=== PATIENT | male | born 1955 | race Caucasian/White ===

== ENCOUNTER 2017-08-08 11:01 | Emergency (ER) | payer SELFPAY ==
--- NOTE | 2017-08-08 11:28 | EDM.PDOC ---
ED HPI GENERAL MEDICAL PROBLEM - General Chief Complaint: General Stated Complaint: ER Time Seen by Provider: 08/08/17 11:21 Source of Information: Reports: Patient History Limitations: Reports: No Limitations - History of Present Illness INITIAL COMMENTS - FREE TEXT/NARRATIVE: Patient here with complaints of high blood pressure. He has no other complaints. Wants to be seen to be started on a blood pressure medication. 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 He had been on htn medication in the past that he is unable to remember. He did start on them and put them away. He has not taken them since. Smokes 1 pack every 5 days or so per his report. Associated Symptoms: Reports: No Other Symptoms - Related Data Allergies Allergy/AdvReac Type Severity Reaction Status Date / Time No Known Allergies Allergy Verified 08/08/17 11:18 Home Meds: Home Meds Aspirin 325 mg PO DAILY 08/08/17 [History] Past Medical History - Past Health History Medical/Surgical History: Denies Medical/Surgical History Social & Family History - Tobacco Use Smoking Status *Q: Current Every Day Smoker Years of Tobacco use: 40 Packs/Tins Daily: 1 ED ROS GENERAL - Review of Systems Review Of Systems: ROS reveals no pertinent complaints other than HPI. ED EXAM, GENERAL - Physical Exam Exam: See Below Exam Limited By: No Limitations General Appearance: Alert, WD/WN, No Apparent Distress Eye Exam: Bilateral Eye: EOMI, PERRL Throat/Mouth: Normal Inspection, Normal Oropharynx Head: Atraumatic, Normocephalic Neck: Normal Inspection Respiratory/Chest: No Respiratory Distress, Lungs Clear, Normal Breath Sounds, No Accessory Muscle Use, Chest Non-Tender Cardiovascular: Normal Peripheral Pulses, Regular Rate, Rhythm, No Edema Peripheral Pulses: 2+: Posterior Tibial (L), Posterior Tibial (R), Dorsalis Pedis (L), Dorsalis Pedis (R) GI/Abdominal: Normal Bowel Sounds, Soft, Non-Tender Extremities: Normal Inspection, Normal Range of Motion, Normal Capillary Refill Neurological: Alert, Oriented, CN II-XII Intact, Normal Cognition, Normal Gait, Normal Reflexes, No Motor/Sensory Deficits Psychiatric: Normal Affect, Normal Mood Skin Exam: Warm, Dry, Intact, Normal Color, No Rash Course - Vital Signs Last Recorded V/S: Last Vital Signs Temp 36.9 C 08/08/17 11:05 Pulse 74 08/08/17 11:05 Resp 18 08/08/17 11:05 BP 156/66 H 08/08/17 11:05 Pulse Ox 95 08/08/17 11:05 - Orders/Labs/Meds Orders: Active Orders 24 hr Category Date Time Status CBC WITH MANUAL DIFF [HEME] Stat Lab 08/08/17 11:21 Ordered CMP [COMPREHENSIVE METABOLIC PN,CMP] [CHEM] Stat Lab 08/08/17 11:21 Ordered - Re-Assessments/Exams Free Text/Narrative Re-Assessment/Exam: 08/08/17 11:25 I did order labs on him and will start him on a month of lisinopril 10 mg daily with no refills. I did advise him that he can't come here for primary care as we are to be used on an emergency basis since we are an emergency department. I let him know of the [place] and [facility] clinics that are here in town. Departure - Departure Time of Disposition: 11:27 Disposition: Home, Self-Care 01 Condition: Good Clinical Impression: Hypertension - Discharge Information Instructions: Hypertension, [id number], Lisinopril tablets Additional Instructions: Take 1 tablet of the lisinopril daily. I did not give you any refills so you are going to have to see someone at either the [facility] or [facility] for follow up as we are an Emergency Room, not primary care. Other things that you can do to reduce your blood pressure include: lose weight , stop smoking, eat more fruits and vegetables, eat fewer processed foods, reduce salt intake, increase exercise to 30-60 minutes most days of the week. Some common side effects from the Lisinopril can include a dry cough or swelling. If either of these occur you should stop taking the medication and visit with a medical provider regarding a change to another blood pressure medication. Stay well hydrated. Follow up with a primary doctor as your symptoms warrant. Please call us if you have any questions or concerns. - Problem List & Annotations (1) Hypertension SNOMED Code(s): 43085764 Code(s): I10 - ESSENTIAL (PRIMARY) HYPERTENSION Status: Acute Priority: Low Qualifiers: Hypertension type: essential hypertension Qualified Code(s): I10 - Essential (primary) hypertension - Problem List Review Problem List Initiated/Reviewed/Updated: Yes - My Orders Last 24 Hours: My Active Orders 08/08/17 11:21 CBC WITH MANUAL DIFF [HEME] Stat CMP [COMPREHENSIVE METABOLIC PN,CMP] [CHEM] Stat - Assessment/Plan Last 24 Hours: My Active Orders 08/08/17 11:21 CBC WITH MANUAL DIFF [HEME] Stat CMP [COMPREHENSIVE METABOLIC PN,CMP] [CHEM] Stat Assessment:: hypertension Plan: Take 1 tablet of the lisinopril daily. I did not give you any refills so you are going to have to see someone at either the [facility] or [facility] for follow up as we are an Emergency Room, not primary care. Other things that you can do to reduce your blood pressure include: lose weight , stop smoking, eat more fruits and vegetables, eat fewer processed foods, reduce salt intake, increase exercise to 30-60 minutes most days of the week. Some common side effects from the Lisinopril can include a dry cough or swelling. If either of these occur you should stop taking the medication and visit with a medical provider regarding a change to another blood pressure medication. Stay well hydrated. Follow up with a primary doctor as your symptoms warrant. Please call us if you have any questions or concerns.
[2017-08-08 12:00] LABS: CHLORIDE,CL 105 mmol/L (98-107); SODIUM,NA 141 mmol/L (136-145)
== END 2017-08-08 11:43 | disposition home or self-care (01) ==
LOC: VM.ED 11:01
DX: I10 Essential (primary) hypertension (principal); F17.210 Nicotine dependence, cigarettes, uncomplicated; Z79.82 Long term (current) use of aspirin
CPT/HCPCS: 36415; 80053; 85025; 99283; 99283-GF

== ENCOUNTER 2017-11-20 17:47 | Emergency (ER) | payer OTHER ==
[~2017-11-20 17:47] MED LIST: Sodium Chloride 0.9% 10 ML Syringe FLUSH PRN
--- NOTE | 2017-11-20 18:08 | EDM.PDOC ---
ED HPI GENERAL MEDICAL PROBLEM - General Chief Complaint: Neuro Symptoms/Deficits Stated Complaint: confusion Time Seen by Provider: 11/20/17 17:47 Source of Information: Reports: Patient, EMS History Limitations: Reports: Altered Mental Status, Uncooperative - History of Present Illness INITIAL COMMENTS - FREE TEXT/NARRATIVE: Patient was found to be acting erratically in a local grocery store. Local grocery store personnel contacted law enforcement. Patient left before law enforcement came in. [place] of [facility] when police found are contacted and called regarding a patient driving erratically they went on a welfare check on the gentleman to be confused and incoherent or driving. 911 dispatch contacted EMS personnel to transport patient here. Pt had bilateral IV inserted with 600ml bolus given. Patient is in and out of orientation. He is confused at times not making any sense and then the next minute he is able to answer questions completely according to EMS. He was incontinent of urine. As noted history of diabetes type 2 without treatment he' s just been diagnosed about this last week. Patient states he has not been eating but has been drinking lots of pop the past couple of days. 1505 last well. Onset: Sudden Onset Date: 11/20/17 Onset Time: 15:05 Duration: Constant - Related Data Allergies Allergy/AdvReac Type Severity Reaction Status Date / Time No Known Allergies Allergy Verified 08/08/17 11:18 Home Meds: Home Meds Aspirin 325 mg PO DAILY 08/08/17 [History] Past Medical History - Past Health History Medical/Surgical History: Denies Medical/Surgical History Social & Family History - Tobacco Use Smoking Status *Q: Current Every Day Smoker Years of Tobacco use: 40 Packs/Tins Daily: 1 ED ROS GENERAL - Review of Systems Review Of Systems: Unable To Obtain ED EXAM, NEURO - Physical Exam Exam: See Below Exam Limited By: Uncooperative General Appearance: Moderate Distress Nose: Normal Inspection, Normal Mucosa Head Exam: Atraumatic, Normocephalic Neck: Normal Inspection Respiratory/Chest: Decreased Breath Sounds, Wheezing, Prolonged Expiration GI/Abdominal: Distended, Guarding, Rigid, Tender, Hepatomegaly (Male) Exam: Scrotum Tenderness (R), Testicular Tenderness (R) Rectal (Males) Exam: Black Stool, Heme + Stool, Tenderness, Other (skin breakdown tissue bleeding ) Neurological: Abnormal Gait, Abnormal Motor, Difficulty Walking Extremities: Mottled (lower extremities ), Redness, Other (healing bruise formation on left ankle ) Skin Exam: Rash Course - Orders/Labs/Meds Orders: Active Orders 24 hr Category Date Time Status Blood Glucose Check, Bedside [] ONETIME Care 11/20/17 16:53 Active EKG 12 Lead [EKG Documentation Completion] [] ROUTINE Care 11/20/17 16:56 Ordered Fecal Occult Bld Diag Imm [RC] ASDIRECTED Care 11/20/17 18:15 Active POC Glucose [Blood Glucose Check, Bedside] [] ONETIME Care 11/20/17 17:55 Active RT Arterial Blood Gases, ABG [] Click to Edit Care 11/20/17 17:55 Active Vital Signs [] .prn Care 11/20/17 16:53 Active Chest Abdomen Pelvis wo Cont [CT] Stat Exams 11/20/17 17:54 Taken Head wo Cont [CT] Stat Exams 11/20/17 16:53 Taken C-REACTIVE PROTEIN [CHEM] Stat Lab 11/20/17 18:19 Received CK W CKMB [CHEM] Stat Lab 11/20/17 18:19 Received COMPREHENSIVE METABOLIC PN,CMP [CHEM] Stat Lab 11/20/17 18:19 Received CULTURE BLOOD [BC] Stat Lab 11/20/17 18:24 Ordered CULTURE BLOOD [BC] Stat Lab 11/20/17 18:24 Ordered ETHANOL BLOOD MEDICAL [CHEM] Stat Lab 11/20/17 18:19 Received LACTIC ACID [CHEM] Stat Lab 11/20/17 18:19 Received TROPONIN I [CHEM] Stat Lab 11/20/17 18:19 Received TYPE AND SCREEN [BBK] Stat Lab 11/20/17 18:19 Received HYDROmorphone [Dilaudid] Med 11/20/17 19:33 Ordered 1 mg IVPUSH Q1H PRN Insulin Regular, Human [HumuLIN R] 100 unit Med 11/20/17 19:45 Ordered Sodium Chloride 0.9% [Normal Saline] 99 ml IV ASDIRECTED Ondansetron [Zofran] Med 11/20/17 19:33 Once 4 mg IVPUSH ONETIME ONE Sodium Chloride 0.9% [Normal Saline] 1,000 ml Med 11/20/17 19:24 Ordered IV ONETIME Sodium Chloride 0.9% [Saline Flush] Med 11/20/17 16:53 Active 10 ml FLUSH ASDIRECTED PRN Vancomycin 1 gm Med 11/20/17 18:53 Active Sodium Chloride 0.9% [Normal Saline] 250 ml IV ONETIME Blood Culture x2 Reflex Set [OM.PC] Stat Oth 11/20/17 18:23 Ordered Peripheral IV Insertion Adult [OM.PC] Urgent Oth 11/20/17 16:53 Ordered Saline Lock Insert [OM.PC] Urgent Oth 11/20/17 16:53 Ordered Medication Orders Hydromorphone HCl (Dilaudid) 1 mg IVPUSH Q1H PRN PRN Reason: Pain Vancomycin HCl 1 gm/ Sodium (Chloride) 250 mls @ 250 mls/hr IV ONETIME ONE Stop: 11/20/17 19:52 Last Admin: 11/20/17 19:01 Dose: 250 mls/hr Sodium Chloride (Normal Saline) 1,000 mls @ 1,000 mls/hr IV ONETIME ONE Stop: 11/20/17 20:23 Last Admin: 11/20/17 19:26 Dose: 1,000 mls/hr Insulin Human Regular 100 unit (/ Sodium Chloride) 100 mls @ 16 mls/hr IV ASDIRECTED TIKA; 16 UNIT/HR PRN Reason: Protocol Ondansetron HCl (Zofran) 4 mg IVPUSH ONETIME ONE Stop: 11/20/17 19:34 Sodium Chloride (Saline Flush) 10 ml FLUSH ASDIRECTED PRN PRN Reason: Keep Vein Open Labs: Laboratory Tests 11/20/17 11/20/17 11/20/17 Range/Units 18:19 18:19 18:19 WBC 11.0 H (4.0-10.0) x10^3/uL RBC 4.29 L (4.5-6.0) x10^6/uL Hgb 12.7 L (14.0-18.0) g/dL Hct 40.8 (40.0-52.0) % MCV 95.1 H D (78.0-93.0) fL MCH 29.6 (26.0-32.0) pg MCHC 31.1 L (32.0-36.0) g/dL RDW Coeff of Lola 14.4 (10.0-15.0) % Plt Count 168 (130-400) x10^3/uL Neut % (Auto) 79.5 (50.0-80.0) % Lymph % (Auto) 12.5 L (25.0-50.0) % [place] % (Auto) 7.5 (2.0-11.0) % Eos % (Auto) 0.1 (0.0-4.0) % Baso % (Auto) 0.4 (0.2-1.2) % PT 9.9 (9.8-11.8) SEC INR 0.9 L (2.0-3.5) APTT 21.0 L (22.0-34.0) SEC Amylase 147 H (25-115) U/L Lipase 2224 H (73-393) U/L Stool Occult Blood (NEGATIVE) Urine Opiates Screen (NEAGTIVE) Ur Buprenorphine Scrn (NEGATIVE) Ur Oxycodone Screen (NEGATIVE) Urine Methadone Screen (NEGATIVE) Ur Barbiturates Screen (NEGATIVE) Ur Tricyclics Screen (NEGATIVE) Ur Amphetamine Screen (NEGATIVE) U Methamphetamines Scrn (NEGATIVE) Urine MDMA Screen (NEGATIVE) U Benzodiazepines Scrn (NEGATIVE) U Cocaine Metab Screen (NEGATIVE) U Marijuana (THC) Screen (NEGATIVE) 11/20/17 11/20/17 Range/Units 18:30 19:10 WBC (4.0-10.0) x10^3/uL RBC (4.5-6.0) x10^6/uL Hgb (14.0-18.0) g/dL Hct (40.0-52.0) % MCV (78.0-93.0) fL MCH (26.0-32.0) pg MCHC (32.0-36.0) g/dL RDW Coeff of Lola (10.0-15.0) % Plt Count (130-400) x10^3/uL Neut % (Auto) (50.0-80.0) % Lymph % (Auto) (25.0-50.0) % [place] % (Auto) (2.0-11.0) % Eos % (Auto) (0.0-4.0) % Baso % (Auto) (0.2-1.2) % PT (9.8-11.8) SEC INR (2.0-3.5) APTT (22.0-34.0) SEC Amylase (25-115) U/L Lipase (73-393) U/L Stool Occult Blood Negative (NEGATIVE) Urine Opiates Screen Negative (NEAGTIVE) Ur Buprenorphine Scrn Negative (NEGATIVE) Ur Oxycodone Screen Negative (NEGATIVE) Urine Methadone Screen Negative (NEGATIVE) Ur Barbiturates Screen Negative (NEGATIVE) Ur Tricyclics Screen Negative (NEGATIVE) Ur Amphetamine Screen Negative (NEGATIVE) U Methamphetamines Scrn Negative (NEGATIVE) Urine MDMA Screen Negative (NEGATIVE) U Benzodiazepines Scrn Negative (NEGATIVE) U Cocaine Metab Screen Negative (NEGATIVE) U Marijuana (THC) Screen Negative (NEGATIVE) Meds: Medications Generic Name Dose Route Start Last Admin Trade Name Freq PRN Reason Stop Dose Admin Hydromorphone HCl 1 mg 11/20/17 19:33 Dilaudid IVPUSH Q1H PRN Pain Vancomycin HCl 1 gm/ Sodium 250 mls @ 250 mls/hr 11/20/17 18:53 11/20/17 19: 01 Chloride IV 11/20/17 19:52 250 mls/hr ONETIME ONE Administration Sodium Chloride 1,000 mls @ 1,000 mls/hr 11/20/17 19:24 11/20/17 19:26 Normal Saline IV 11/20/17 20:23 1,000 mls/hr ONETIME ONE Administration Insulin Human Regular 100 unit 100 mls @ 16 mls/hr 11/20/17 19:45 / Sodium Chloride IV ASDIRECTED [facility] Protocol 16 UNIT/HR Ondansetron HCl 4 mg 11/20/17 19:33 Zofran IVPUSH 11/20/17 19:34 ONETIME ONE Sodium Chloride 10 ml 11/20/17 16:53 Saline Flush FLUSH ASDIRECTED PRN Keep Vein Open Discontinued Medications Generic Name Dose Route Start Last Admin Trade Name Freq PRN Reason Stop Dose Admin Ceftriaxone Sodium 1 gm 11/20/17 18:53 Rocephin IM 11/20/17 18:54 ONETIME ONE Ceftriaxone Sodium 1 gm 11/20/17 18:55 11/20/17 18:59 Rocephin IVPUSH 11/20/17 18:56 1 gm ONETIME ONE Administration Insulin Aspart 15 unit 11/21/17 08:00 Novolog SUBCUT TIDMEALS [facility] Insulin Aspart 15 unit 11/20/17 18:35 11/20/17 19:21 Novolog SUBCUT Not Given TIDMEALS [facility]A Insulin Human Regular 15 unit 11/20/17 18:44 11/20/17 18:50 Humulin R IV 11/20/17 18:45 15 units ONETIME ONE Administration Protocol Departure - Departure Time of Disposition: 19:40 Disposition: Home, Self-Care 01 Condition: Fair Clinical Impression: Sepsis Qualifiers: Sepsis type: sepsis due to unspecified organism Qualified Code(s): A41.9 - Sepsis, unspecified organism DKA (diabetic ketoacidoses) Qualifiers: Diabetes mellitus type: type 2 Diabetes mellitus complication detail: without coma Qualified Code(s): E11.10 - Type 2 diabetes mellitus with ketoacidosis without coma - Discharge Information Referrals: PCP,None [Primary Care Provider] - Forms: ED Department Discharge, Interfacility Transfer EMTALA - My Orders Last 24 Hours: My Active Orders 11/20/17 16:53 Blood Glucose Check, Bedside [RC] ONETIME Vital Signs [RC] .prn Head wo Cont [CT] Stat Sodium Chloride 0.9% [Saline Flush] 10 ml FLUSH ASDIRECTED PRN Peripheral IV Insertion Adult [OM.PC] Urgent Saline Lock Insert [OM.PC] Urgent 11/20/17 16:56 EKG 12 Lead [EKG Documentation Completion] [RC] ROUTINE 11/20/17 17:54 Chest Abdomen Pelvis wo Cont [CT] Stat 11/20/17 17:55 POC Glucose [Blood Glucose Check, Bedside] [RC] ONETIME RT Arterial Blood Gases, ABG [RC] Click to Edit 11/20/17 18:15 Fecal Occult Bld Diag Imm [RC] ASDIRECTED 11/20/17 18:19 C-REACTIVE PROTEIN [CHEM] Stat CK W CKMB [CHEM] Stat COMPREHENSIVE METABOLIC PN,CMP [CHEM] Stat ETHANOL BLOOD MEDICAL [CHEM] Stat LACTIC ACID [CHEM] Stat TROPONIN I [CHEM] Stat TYPE AND SCREEN [BBK] Stat 11/20/17 18:23 Blood Culture x2 Reflex Set [OM.PC] Stat 11/20/17 18:24 CULTURE BLOOD [BC] Stat CULTURE BLOOD [BC] Stat 11/20/17 18:53 Vancomycin 1 gm Sodium Chloride 0.9% [Normal Saline] 250 ml IV ONETIME 11/20/17 19:24 Sodium Chloride 0.9% [Normal Saline] 1,000 ml IV ONETIME 11/20/17 19:33 HYDROmorphone [Dilaudid] 1 mg IVPUSH Q1H PRN Ondansetron [Zofran] 4 mg IVPUSH ONETIME ONE 11/20/17 19:45 Insulin Regular, Human [HumuLIN R] 100 unit Sodium Chloride 0.9% [Normal Saline] 99 ml IV ASDIRECTED - Assessment/Plan Last 24 Hours: My Active Orders 11/20/17 16:53 Blood Glucose Check, Bedside [RC] ONETIME Vital Signs [RC] .prn Head wo Cont [CT] Stat Sodium Chloride 0.9% [Saline Flush] 10 ml FLUSH ASDIRECTED PRN Peripheral IV Insertion Adult [OM.PC] Urgent Saline Lock Insert [OM.PC] Urgent 11/20/17 16:56 EKG 12 Lead [EKG Documentation Completion] [RC] ROUTINE 11/20/17 17:54 Chest Abdomen Pelvis wo Cont [CT] Stat 11/20/17 17:55 POC Glucose [Blood Glucose Check, Bedside] [RC] ONETIME RT Arterial Blood Gases, ABG [RC] Click to Edit 11/20/17 18:15 Fecal Occult Bld Diag Imm [RC] ASDIRECTED 11/20/17 18:19 C-REACTIVE PROTEIN [CHEM] Stat CK W CKMB [CHEM] Stat COMPREHENSIVE METABOLIC PN,CMP [CHEM] Stat ETHANOL BLOOD MEDICAL [CHEM] Stat LACTIC ACID [CHEM] Stat TROPONIN I [CHEM] Stat TYPE AND SCREEN [BBK] Stat 11/20/17 18:23 Blood Culture x2 Reflex Set [OM.PC] Stat 11/20/17 18:24 CULTURE BLOOD [BC] Stat CULTURE BLOOD [BC] Stat 11/20/17 18:53 Vancomycin 1 gm Sodium Chloride 0.9% [Normal Saline] 250 ml IV ONETIME 11/20/17 19:24 Sodium Chloride 0.9% [Normal Saline] 1,000 ml IV ONETIME 11/20/17 19:33 HYDROmorphone [Dilaudid] 1 mg IVPUSH Q1H PRN Ondansetron [Zofran] 4 mg IVPUSH ONETIME ONE 11/20/17 19:45 Insulin Regular, Human [HumuLIN R] 100 unit Sodium Chloride 0.9% [Normal Saline] 99 ml IV ASDIRECTED
[2017-11-20] MEDS ORDERED: Insulin Aspart 100 Units/ML 3 ML Pen SUBCUT SCH (18:35)
[2017-11-20] MEDS ORDERED: Insulin Regular, Human 100 Units/ML 3 ML Vial IV ONE (18:44)
[2017-11-20] MEDS ORDERED: cefTRIAXone 1 GM Vial IM ONE (18:53)
[2017-11-20] MEDS ORDERED: cefTRIAXone 1 GM Vial IVPUSH ONE (18:55)
[2017-11-20 19:18] LABS: CHLORIDE,CL 103 mmol/L (98-107); SODIUM,NA 140 mmol/L (136-145)
[2017-11-20] MEDS ORDERED: Sodium Chloride 0.9% 1,000 ML IV ONE ×2 (19:24→19:43)
[2017-11-20] MEDS ORDERED: Ondansetron 4 MG/2 ML SDV IVPUSH ONE (19:33)
[2017-11-20] MEDS ORDERED: Insulin Regular, Human 100 Units/ML 3 ML Vial ONE (19:33)
[2017-11-20] MEDS ORDERED: HYDROmorphone 1 MG/ML Syringe IVPUSH PRN (19:33)
[2017-11-21] MEDS ORDERED: Insulin Aspart 100 Units/ML 3 ML Pen SUBCUT SCH (08:00)
== END 2017-11-20 19:55 | disposition short-term general hospital (02) ==
LOC: VM.ED 17:50
DX: A41.9 Sepsis, unspecified organism (principal); E11.10 Type 2 diabetes mellitus with ketoacidosis without coma; F17.210 Nicotine dependence, cigarettes, uncomplicated; Z79.82 Long term (current) use of aspirin
CPT/HCPCS: 36415; 51702; 70450; 71250; 74176; 80053; 80305; 82150; 82274; 82550; 82553; 82962; 83605; 83690; 84484; 85025; 85610; 85730; 86140; 87040; 93005; 96365; 96366; 96368; 96375; 99285; G0480; J0696; J1170; J1815; J2405; J3370; J7030; J7050; 99284-GF